=== PATIENT | female | born 1940 | race African-American/Black ===

== ENCOUNTER → 2017-01-16 | Outpatient (CLI) | payer MEDICARE, OTHER ==
[~2017-01-16] MED LIST: ACETAMINOPHEN PO; ACETAMINOPHEN500 M3 PO; ADVAIR 250-501 EACH IH; ALBUTEROL17 G1 IH; ALBUTEROL17 G1 INH; ALBUTEROL17 GM INH; ARIMIDEX1 MG PO; COLACE PO; COMBIVENT INH14.7 GM INH; COMBIVENT14.7 GM INH; DOXYCYCLINE150 MG PO; DUONEB 2.5-0.5 M3 ML NEB; FAMOTIDINE PO; IRON TABLETS1 TAB PO; IRON1 TA1 PO; IRON325 ( 651 PO; K-DUR20 ME1 PO; LASIX20 MG PO; LEVAQUIN PO; LEVAQUIN750 MG PO; LORTAB 10-5001 EACH PO; LORTAB 5/500 TA1 TA1 PO; LORTAB 5/500 TA1 TA2 PO; MEDROL4 MG/DOSE- PO; MILK OF MAGNESIA PO; NASONEX17 GM; NORCO 5/325 TAB1 TAB PO; PREDNISONE PO; PREDNISONE10 MG; PREDNISONE10 MG PO; PREDNISONE50 MG PO; PRILOSEC PO; QVAR7.3 G1 IH; SINGULAIR PO; SUDAFED PO; VIBRAMYCIN100 M1 PO; VICODIN 5/1 TAB 5/50 PO; ZANTAC PO; ZANTAC300 MG PO; ZITHROMAX PO; ZITHROMAX1 G/PKT PO
--- NOTE | ~2017-01-16 | CT57 ---
[facility] A Service of [facility] & [facility] RADIOLOGY TEXT RESULTS PATIENT: MADHAV COELLO [facility] UNIT #: [id number] AGE: [address]: Kevan Menard Jr, MD SEX: F ORDER DR: [id number] [facility] [address] [place], [place] [address] [id number] O MR#: [id number] Acc #: [id number] NAME: MADHAV COELLO : 1940 SEX: F STUDY DATE/TIME: 01/16/2017 15:29 UNIT: [facility]AT ROOM: STUDY DESCRIPTION: CT Chest Wo Cont Attending Physician: Kevan Menard Jr., M.D. Referring Physician: Kevan Menard Jr., M.D. Ordering Physician: Kevan Menard Jr., M.D. Primary Care Physician: Kevan Menard Jr., M.D. MEDICAL IMAGING REPORT This report is preliminary unless electronic signature is present EXAM CT chest without contrast HISTORY Shortness of air today. Recent pneumonia. Left mid-chest mass on recent outside chest x-ray. TECHNIQUE CT chest was performed without contrast. This CT exam was performed with one or more of the following radiation dose reduction techniques: automatic exposure control, adjustment of mA and/or kV according to patient size, and iterative reconstruction. COMPARISON STUDIES CT chest 01/18/2012. FINDINGS There is a lobulated mass in the posterior left upper lobe measuring 2.2 cm x 3 cm x 3 cm. An ill-defined 1.5 cm nodule was noted in this region on the prior CT. There is new adenopathy in the left neck base measuring 1.7 cm and a 1.2 cm node in the left supraclavicular fossa. 1.3 cm aortopulmonic window node. 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 Biopsy is recommended. Pericardial effusion measures 1.5 cm along the posterior left cardiac margin. Trace right pleural effusion. Mild atelectasis in the posterior lower lobes bilaterally and in the posterior left upper lobe. Moderate bilateral emphysema, primarily in the upper lobes. Left mastectomy. 0.8 cm subcutaneous node in the lateral left mid-chest. This is new since the prior CT. Images of the upper abdomen demonstrate partly visualized anterior midline [facility]S. [facility] A Service of [facility] RADIOLOGY TEXT RESULTS PATIENT: MADHAV COELLO LOCATION: [facility] : 42 UNIT #: [id number] AGE: [address]: Kevan Menard Jr, MD SEX: F ORDER DR: upper abdominal wall hernia containing at least a small anterior portion of mid-transverse colon. Percutaneous gastrostomy tube extends into the stomach. Chronic calcification in the pancreatic tail. IMPRESSION 1. Lobulated mass in the left upper lobe measures 2.2 x 3 x 3 cm and is concerning for lung carcinoma. Adenopathy in the left supraclavicular fossa, left neck base, and mediastinum and a borderline enlarged subcutaneous note lateral left mid-chest are concerning for steve metastatic disease. 2. Small right pleural effusion. 3. Pericardial effusion measures 1.5 cm along the left posterior cardiac margin. Dictated by... Jatin Victoria M.D. THIS IS AN ELECTRONICALLY VERIFIED REPORT Jatin Victoria M.D. at 01/17/2017 11:01 PM SHAYY/faustina TD: 01/16/2017 23:42 JOB #: [id number] MEDICAL IMAGING REPORT Page 1 of 1 COPY
== END | disposition home or self-care (01) ==
LOC: CCAT 15:17
DX: R22.2 Localized swelling, mass and lump, trunk (principal); R91.8 Other nonspecific abnormal finding of lung field; R59.0 Localized enlarged lymph nodes; J90 Pleural effusion, not elsewhere classified
CPT/HCPCS: 71250